=== PATIENT | female | born 2000 | race Hispanic/Latino ===

== ENCOUNTER 2020-10-24 02:23 | Emergency (ER) | payer MEDICAID ==
[~2020-10-24] VITALS: Ht 152.4 cm; Wt 90.7 kg
[2020-10-24 02:29] VITALS: BP 105/70
[2020-10-24 02:54] LABS: APPEARANCE,URINE Turbid (CLEAR); BILIRUBIN,URINE Small (NEGATIVE); COLOR,URINE Orange (YELLOW); GLUCOSE, URINE (UA) Negative (NEGATIVE); KETONES,URINE Trace mg/dL (NEGATIVE); LEUKOCYTE ESTERASE ,URINE Moderate (NEGATIVE); NITRATE,URINE Negative (NEGATIVE); OCCULT BLOOD,URINE Large (NEGATIVE); PROTEIN,URINE 300 mg/dL (NEGATIVE)
[2020-10-24 03:00] LABS: HCG,QUAL RESULT NEGATIVE (NEGATIVE)
[2020-10-24 03:04] LABS: BACTERIA,URINE Rare /HPF (None Seen); RBC,URINE 51-100 /HPF (0-1); SQUAMOUS EPITHELIAL CELL,UR Rare /HPF (0-2)
[2020-10-24 03:53] LABS: BASOPHILS % (AUTO) 0.3 % (0.0-5.0); EOSINOPHILS % (AUTO) 4.4 % (0.0-8.0); HEMATOCRIT 37.4 % (36-48); LYMPHOCYTES % (AUTO) 21.7 % (21.0-51.0); MEAN CORPUSCULAR HEMOGLOBIN 26.9 pg (27.0-33.0); MEAN CORPUSCULAR HGB CONC 33.4 g/dL (32.0-36.0); MEAN CORPUSCULAR VOLUME 80.6 fL (80-100); MONOCYTES % (AUTO) 10.1 % (3.0-13.0); NEUTROPHILS % (AUTO) 62.3 % (40.0-77.0); PLATELET COUNT (AUTO) 252 K/uL (130-400); RED BLOOD CELL COUNT(AUTO) 4.64 MIL/uL (4.00-5.50); RED CELL DISTRIBUTION WIDTH 12.5 % (11.0-15.5); WHITE BLOOD COUNT (AUTO) 10.4 K/uL (4.8-10.8)
[2020-10-24] MEDS ORDERED: KETOROLAC 30MG VIAL (30MG/ML) ONE (03:53)
[2020-10-24 03:58] LABS: ALBUMIN 3.9 g/dL (3.5-5.0); BILIRUBIN,TOTAL 0.3 mg/dL (0.2-1.0); CREATININE 0.7 mg/dL (0.5-1.5); TOTAL PROTEIN, SERUM 7.5 g/dL (6.0-8.3)
[2020-10-24] MEDS ORDERED: KETOROLAC 30MG VIAL (30MG/ML) IV ONE (04:00)
[2020-10-24] MEDS ORDERED: 0.9%NACL 1000ML 1,000 ML IV ONE (04:00)
[2020-10-24 05:11] VITALS: BP 107/68
[2020-10-24] MEDS ORDERED: DICY20TA2 PO (05:21)
[2020-10-24] MEDS ORDERED: METO-296 PO (05:21)
[2020-10-24] MEDS ORDERED: CEPH500B PO (05:21)
[2020-10-24] MEDS ORDERED: ONDA4TAB10 PO (05:21)
[2020-10-24] MEDS ORDERED: CEPHALEXIN 500 MG CAPSULE PO ONE (05:30)
== END 2020-10-24 05:39 | disposition home or self-care (01) ==
LOC: EDH 02:23
DX: N39.0 Urinary tract infection, site not specified (principal); Z79.1 Long term (current) use of non-steroidal anti-inflammatories (NSAID); Z79.899 Other long term (current) drug therapy
CPT/HCPCS: 36415; 74176; 80053; 81001; 81025; 83690; 85025; 87077; 87088; 87186; 96361; 96374; 99284; J1885; J7030

== ENCOUNTER 2021-06-05 21:39 | Observation (INO) | payer MEDICAID ==
[~2021-06-05] VITALS: Ht 154.9 cm; Wt 94.8 kg
[~2021-06-05 21:39] MED LIST: CEPH500B PO; DICY20TA2 PO; METO-296 PO; ONDA4TAB10 PO
[2021-06-05 23:17] LABS: APPEARANCE,URINE Clear (CLEAR); BILIRUBIN,URINE Negative (NEGATIVE); COLOR,URINE Yellow (YELLOW); GLUCOSE, URINE (UA) Negative (NEGATIVE); KETONES,URINE Negative (NEGATIVE); LEUKOCYTE ESTERASE ,URINE Trace (NEGATIVE); NITRATE,URINE Negative (NEGATIVE); OCCULT BLOOD,URINE Negative (NEGATIVE); PH,URINE 6.5 (5.0-8.0); PROTEIN,URINE Negative (NEGATIVE)
[2021-06-05 23:18] LABS: BASOPHILS % (AUTO) 0.3 % (0.0-5.0); EOSINOPHILS % (AUTO) 5.1 % (0.0-8.0); MEAN CORPUSCULAR HEMOGLOBIN 25.8 pg (27.0-33.0); MEAN CORPUSCULAR HGB CONC 32.8 g/dL (32.0-36.0); MEAN CORPUSCULAR VOLUME 78.8 fL (80-100); MONOCYTES % (AUTO) 9.3 % (3.0-13.0); NEUTROPHILS % (AUTO) 55.5 % (40.0-77.0); NUCLEATED RED BLOOD CELLS 0.2 % (0.0-0.19); PLATELET COUNT (AUTO) 275 K/uL (130-400); RED BLOOD CELL COUNT(AUTO) 4.57 MIL/uL (4.00-5.50); RED CELL DISTRIBUTION WIDTH 13.2 % (11.0-15.5); WHITE BLOOD COUNT (AUTO) 8.6 K/uL (4.8-10.8)
[2021-06-05 23:25] LABS: HCG,QUAL RESULT NEGATIVE (NEGATIVE)
[2021-06-05 23:26] LABS: BACTERIA,URINE Few /HPF (None Seen); MUCUS,URINE Rare LPF (None Seen); RBC,URINE None Seen /HPF (0-1); SQUAMOUS EPITHELIAL CELL,UR Rare /HPF (0-2)
[2021-06-05 23:28] LABS: CREATININE 0.7 mg/dL (0.5-1.5); POTASSIUM 3.7 mmol/L (3.5-5.1)
[2021-06-05] MEDS ORDERED: 0.9%NACL 1000ML 1,000 ML IV SCH (23:30)
[2021-06-05 23:33] LABS: ALBUMIN 3.9 g/dL (3.5-5.0); BILIRUBIN,TOTAL 0.3 mg/dL (0.2-1.0); TOTAL PROTEIN, SERUM 7.7 g/dL (6.0-8.3)
[2021-06-05 23:43] LABS: INR 1.05 (0.85-1.15); PROTHROMBIN TIME 11.4 SEC (9.6-11.6)
[2021-06-06] MEDS ORDERED: ONDANSETRON 4MG INJ IV PRN (00:30)
[2021-06-06] MEDS ORDERED: LACTULOSE 20 GM/30 ML UDCUP PO PRN (00:30)
[2021-06-06] MEDS ORDERED: ACETAMINOPHEN 325 MG TAB PO PRN ×2 (00:30)
[2021-06-06] MEDS: 0.9%NACL 1000ML 1,000 ML IV SCH ×2 (01:31→12:59)
[2021-06-06 05:27] VITALS: BP 118/68
[2021-06-06 06:43] LABS: CREATININE 0.5 mg/dL (0.5-1.5); POTASSIUM 3.6 mmol/L (3.5-5.1)
[2021-06-06 07:03] LABS: BASOPHILS % (AUTO) 0.4 % (0.0-5.0); HEMATOCRIT 32.7 % (36-48); LYMPHOCYTES % (AUTO) 35.3 % (21.0-51.0); MEAN CORPUSCULAR HEMOGLOBIN 25.7 pg (27.0-33.0); MEAN CORPUSCULAR HGB CONC 31.8 g/dL (32.0-36.0); MEAN CORPUSCULAR VOLUME 80.7 fL (80-100); MONOCYTES % (AUTO) 10.9 % (3.0-13.0); NEUTROPHILS % (AUTO) 46.8 % (40.0-77.0); PLATELET COUNT (AUTO) 216 K/uL (130-400); RED BLOOD CELL COUNT(AUTO) 4.05 MIL/uL (4.00-5.50); RED CELL DISTRIBUTION WIDTH 13.2 % (11.0-15.5); WHITE BLOOD COUNT (AUTO) 6.7 K/uL (4.8-10.8)
[2021-06-06 07:35] VITALS: BP 101/60
[2021-06-06] MEDS ORDERED: FAMOTIDINE 20MG VIAL IV SCH (09:00)
[2021-06-06 11:00] VITALS: BP 95/68
[2021-06-06 12:00] LABS: HEMATOCRIT 34.8 % (36-48)
[2021-06-06 16:00] VITALS: BP 102/60
[2021-06-06 19:17] VITALS: BP 114/71
[2021-06-06 19:58] LABS: HEMATOCRIT 32.4 % (36-48)
[2021-06-06] MEDS ORDERED: PANTOPRAZOLE 40 MG/VIAL IVP SCH (21:00)
[2021-06-06] MEDS: PSYLLIUM SEED 1 EACH PACKET PO SCH (22:06)
[2021-06-06 23:11] VITALS: BP 113/68
[2021-06-07] MEDS: 0.9%NACL 1000ML 1,000 ML IV SCH (00:29)
[2021-06-07 00:31] LABS: HEMATOCRIT 33.6 % (36-48)
[2021-06-07 03:18] VITALS: BP 98/50
[2021-06-07] MEDS ORDERED: PANTOPRAZOLE 40 MG TAB DR PO SCH (09:00)
[2021-06-07 09:17] VITALS: BP 110/76
[2021-06-07] MEDS: PSYLLIUM SEED 1 EACH PACKET PO SCH ×2 (09:20→14:52)
[2021-06-07 12:15] VITALS: BP 101/81
[2021-06-07 12:41] LABS: HEMATOCRIT 36.6 % (36-48)
== END 2021-06-07 15:00 | disposition home or self-care (01) ==
LOC: EDH 21:39 → EDHIP 21:40 → WSH 06-06 05:21
PROVIDERS: ADMIT Internal Medicine; ATTEND Internal Medicine
DX: K62.5 Hemorrhage of anus and rectum (principal); Z20.822 Contact with and (suspected) exposure to COVID-19; I95.1 Orthostatic hypotension; E66.9 Obesity, unspecified; Z79.899 Other long term (current) drug therapy; Z98.890 Other specified postprocedural states; Z68.39 Body mass index [BMI] 39.0-39.9, adult
CPT/HCPCS: 36415 ×3; 74176; 80048; 80053; 81001; 81025; 82270; 83605; 83690; 85014 ×5; 85018 ×5; 85025 ×2; 85610; 85730; 87635; 96361 ×2; 96374; 96375; 99284; G0378 ×39; J7030 ×2; S0028; S0164; C9113; J3490

== ENCOUNTER 2023-01-30 00:59 | Emergency (ER) | payer MEDICAID, OTHER ==
[~2023-01-30] VITALS: Ht 154.9 cm; Wt 97.5 kg
[2023-01-30 01:30] VITALS: BP 122/64; PULSE 79; RESP 16; O2SAT 98
== END 2023-01-30 02:38 | disposition home or self-care (01) ==
LOC: EDH 00:59
DX: T19.2XXA Foreign body in vulva and vagina, initial encounter (principal); E66.9 Obesity, unspecified; X58.XXXA Exposure to other specified factors, initial encounter; Y93.89 Activity, other specified; Y92.89 Other specified places as the place of occurrence of the external cause; Y99.8 Other external cause status

== ENCOUNTER 2023-02-27 18:17 | Emergency (ER) | payer OTHER ==
[~2023-02-27] VITALS: Ht 154.9 cm; Wt 95.3 kg
[2023-02-27 18:34] VITALS: BP 126/77; PULSE 114; RESP 18
[2023-02-27 19:54] LABS: RAPID GROUP A STREP negative (NEGATIVE)
[2023-02-27 19:57] LABS: SARS-CoV-2, RNA, NAAT NEGATIVE SARS CoV-2 (NEGATIVE)
[2023-02-27 20:02] LABS: INFLUENZA TYPE A Negative For Type A (NEGATIVE); INFLUENZA TYPE B Negative For Type B (NEGATIVE)
== END 2023-02-27 20:33 | disposition left against medical advice (07) ==
LOC: EDH 18:17
DX: J02.9 Acute pharyngitis, unspecified (principal); Z20.822 Contact with and (suspected) exposure to COVID-19; Z53.21 Procedure and treatment not carried out due to patient leaving prior to being seen by health care provider
CPT/HCPCS: 87635; 87804; 87880; 99281